=== PATIENT | male | born 1970 | race Caucasian/White ===

== ENCOUNTER 2018-10-09 09:58 | Emergency (ER) | payer SELFPAY ==
[2018-10-09 10:03] VITALS: BP 135/83; PULSE 104; TEMP 98.1; BMI 25.8
--- NOTE | 2018-10-09 11:27 | PDOC ---
History of Present Illness - General Chief Complaint: Pain, Acute Stated Complaint: GROIN PAIN Time Seen by Provider: 10/09/18 11:19 History Source: Patient Exam Limitations: No Limitations - History of Present Illness Initial Comments: 10/09/18 11:31 Patient states 3 months ago was pulling up heavy gait when he felt an acute onset of pain in his right groin. Since that time has had pain and protrusion with coughing or movement. Has always been able to be easily reduced, denies fever, denies any changes in bowel or bladder. Has never sought attention or evaluation for same. Occurred: reports: other Severity: reports: mild, moderate Pain Location: reports: abdomen Method of Injury: Yes: other (was lifting ) Modifying Factors: improves with: None Associated Symptoms (Fall): denies symptoms Past History - Travel Traveled outside of the country in the last 30 days: No Close contact w/someone who was outside of country & ill: No - Past Medical History Allergies/Adverse Reactions: Allergies Allergy/AdvReac Type Severity Reaction Status Date / Time Penicillins Allergy Verified 10/09/18 10:00 Home Medications: Ambulatory Orders NK [No Known Home Medication] 10/09/18 - Suicide/Smoking/Psychosocial Hx Smoking History: Unknown if ever smoked Review of Systems - Review of Systems Able to Perform ROS?: Yes Is the patient limited Mongolian proficient: Yes Constitutional: Yes: See HPI. No: Symptoms Reported, Fever, Loss of Appetite, Malaise HEENTM: No: Symptoms Reported Respiratory: No: Symptoms reported ABD/GI: Yes: Symptoms Reported, See HPI. No: Nausea, Poor Appetite, Poor Fluid Intake, Rectal Bleeding, Vomiting, Indigestion, Abdominal cramping : Yes: Symptoms Reported, See HPI, Other (mass to right groin, easily reduced and reproduced with cough or abdominal pressure consistent with an inguinal hernia. No duskiness,) All Other Systems: Reviewed and Negative *Physical Exam - Vital Signs Last Vital Signs Temp Pulse Resp BP Pulse Ox 98.1 F 104 H 18 135/83 100 10/09/18 10:01 10/09/18 10:01 10/09/18 10:01 10/09/18 10:01 10/09/18 10:01 - Physical Exam General Appearance: Yes: Nourished, Appropriately Dressed, Apparent Distress, Mild Distress HEENT: positive: RAMON, Normal ENT Inspection, TMs Normal, Pharynx Normal Neck: positive: Supple. negative: Tender Respiratory/Chest: positive: Lungs Clear Gastrointestinal/Abdominal: positive: Other (patient with reproducible protrusion to right inguinal area consistent with hernia. It is not dusky, nontender, and easily reduced. Left side without bulging or tenderness, no hernia appreciated.) Male Genitalia: positive: normal genitalia. negative: CVAT Rectal Exam: positive: deferred Moderate Sedation - Procedure Monitoring Vital Signs: Procedure Monitoring Vital Signs Temperature 98.1 F 10/09/18 10:01 Pulse Rate 104 H 10/09/18 10:01 Respiratory Rate 18 10/09/18 10:01 Blood Pressure 135/83 10/09/18 10:01 O2 Sat by Pulse Oximetry (%) 100 10/09/18 10:01 Progress Note - Progress Note Progress Note: Right inguinal hernia, easily reduced. Ultrasound shows lymphadenopathy and hernia, no mention of incarceration. Discussed case with patient who has concerns about lack of insurance. Reviewed emergency signs and symptoms that currently this inguinal hernia did not need emergent revision. *DC/Admit/Observation/Transfer Diagnosis at time of Disposition: Inguinal hernia Qualifiers: Obstruction and gangrene presence: without obstruction or gangrene Laterality: unilateral Recurrence: recurrent Qualified Code(s): K40.91 - Unilateral inguinal hernia, without obstruction or gangrene, recurrent - Discharge Dispostion Disposition: HOME Condition at time of disposition: Stable Decision to Admit order: No - Referrals Referrals: Julián Peres MD [Staff Physician] - - Patient Instructions Printed Discharge Instructions: DI for Groin Hernia Additional Instructions: Rest, drink lots of fluids: Teas, water, soups Avoid heavy lifting, strenuous activity or exercise until evaluated by surgeon Continue [id number] medications for symptomatic relief Tylenol or Motrin for fever and pain Use stool softeners to keep bowels soft, to avoid straining Followup with private physician in one to 2 days for probable preoperative clearance Call make an appointment with surgery for evaluation of hernia and repair Return to emergency department for worsened symptoms, fevers, pain or inability to reduce the hernia - Post Discharge Activity Forms/Work/School Notes: Back to Work
== END 2018-10-09 13:30 | disposition home or self-care (01) ==
LOC: JER 09:58 → JERFT 09:58
DX: K40.91 Unilateral inguinal hernia, without obstruction or gangrene, recurrent (principal)
CPT/HCPCS: 76856-TC; 99281-25